=== PATIENT | female | born 1975 | race Two or more races ===

== ENCOUNTER 2020-09-08 10:35 | Inpatient (IN) | payer OTHER ==
[~2020-09-08] VITALS: Ht 14.2 cm; Wt 68.0 kg
[2020-09-09] MEDS ORDERED: IBU800 MG PO (16:55)
[2020-09-09] MEDS ORDERED: COLACE100 MG PO (16:56)
[2020-09-09] MEDS ORDERED: SIMETHICONE125 M1 PO (16:57)
== END 2020-09-09 17:07 | disposition home or self-care (01) | DRG 743 ==
LOC: CIR.AMB 10:35 → OB/GYN 20:53
PROVIDERS: Surgery; ADMIT Specialist; ATTEND Specialist
PROC: 0UB74ZZ Excision of Bilateral Fallopian Tubes, Percutaneous Endoscopic Approach (ICD-10-PCS; 2020-09-08)
PROC: 0UT94ZZ Resection of Uterus, Percutaneous Endoscopic Approach (ICD-10-PCS; principal; 2020-09-08 08:45)
PROC: 0DNN4ZZ Release Sigmoid Colon, Percutaneous Endoscopic Approach (ICD-10-PCS; 2020-09-08 08:45)
DX: D25.0 Submucous leiomyoma of uterus (principal); N80.0 Endometriosis of uterus; N73.6 Female pelvic peritoneal adhesions (postinfective); D25.1 Intramural leiomyoma of uterus; D25.2 Subserosal leiomyoma of uterus; N72 Inflammatory disease of cervix uteri